=== PATIENT | male | born 1995 | race Caucasian/White ===

== ENCOUNTER 2020-10-18 14:52 | Emergency (ER) | payer MEDICAID, SELFPAY ==
--- NOTE | 2020-10-18 16:02 | XR_ITS ---
EXAMINATION: XR LUMBOSACRAL SPINE CLINICAL INFORMATION: Pain COMPARISON: None TECHNIQUE: Three views of the lumbosacral spine. FINDINGS: Bone alignment is normal. No fracture or dislocation is seen. Disc spaces are normal. XR/XR lumbar spine 2-3V IMPRESSION: Unremarkable examination.
[2020-10-18 16:16] VITALS: BP 113/80; PULSE 114; RESP 16; TEMP 36.4; O2SAT 97; BMI 20.9
--- NOTE | 2020-10-18 17:10 | ED.BACK ---
HPI - Back Pain/Injury General Chief Complaint: Back Pain/Injury Stated Complaint: back pain,no inj Time Seen by Provider: 10/18/20 16:02 Source: patient Mode of arrival: ambulatory Limitations: no limitations History of Present Illness HPI Narrative: States several days ago was trying to get out of bed feeling a pull sensation in the left lower back region and has had back pain with certain position sense. Denies any abdominal pain, nausea, vomiting or diarrhea. No symptoms. No headache, fever or chills. No history of IVDA use. No lower extremity weakness, numbness or control of BB. MD elicited complaint: back pain Similar Symptoms Previously: Yes Location: lumbar spine Relieving factors: immobilization Context: turning/twisting Associated symptoms: denies other symptoms Work related injury: No Related Data Previous Rx's Medication Instructions Recorded cyclobenzaprine 10 mg PO BID PRN #20 tab 10/18/20 ibuprofen 800 mg PO Q8H PRN #20 tab 10/18/20 Allergies Allergy/AdvReac Type Severity Reaction Status Date / Time promethazine [PROMETHAZINE] Allergy Unknown AGITATION Unverified 07/13/20 16:10 Sulfa (Sulfonamide Allergy Unknown BLISTERS Unverified 07/13/20 16:10 Antibiotics) [SULFA (SULFONAMIDE ANTIBIOTICS)] Review of Systems Review of Systems: Constitutional: No Weight loss, No Fever, No Chills, No Night Sweats, No Fatigue, No Malaise ENT/Mouth: No Hearing loss, No Ear Pain, No Nasal Congestion, No Sinus Pain, No Hoarseness, No sore throat, No Rhinorrhea, No Swallowing Difficulty Eyes: No Eye Pain, No Swelling, No Redness, No Foreign Body, No Discharge, No Vision Changes Cardiovascular: No Chest Pain, No SOB, No Dyspnea on Exertion, No Orthopnea, No Edema, No Palpitations Respiratory: No Cough, No Sputum, No Wheezing, No Smoke Exposure, No Dyspnea Gastrointestinal: No Nausea, No Vomiting, No Diarrhea, No Constipation, No abdominal Pain Genitourinary: no irregular bleeding, No Dysuria, No Urinary Frequency, No Hematuria, No Urinary Incontinence, No Urgency Musculoskeletal: No joint pain, No Myalgias, No Joint Swelling, as noted in HPI Skin: No Skin Lesions, No rash Neuro: No Weakness, No Numbness, No Paresthesias, No Loss of Consciousness, No Dizziness, No Headache Psych: No Social Issues Heme/Lymph: No Bruising, No Bleeding,No Lymphadenopathy Endocrine: No Polyuria, No Polydipsia, No Temperature Intolerance Yes all other systems are reviewed and are negative [facility] Past Medical History Medical History FH: bone marrow transplant Hx of radiation therapy Medulloblastoma Personal history of chemotherapy Surgical History H/O eye surgery Social History Social History Alcohol intake: never Smoked in Last 30 Days: No Use of substances other than those prescribed or required for medical reasons: No Advance Directives: No Advance Directives Information Provided: No Physical Exam Vital Signs: Vital Signs: Last Vital Signs Temp 97.5 F 10/18/20 16:16 Pulse 114 H 10/18/20 16:16 Resp 16 10/18/20 16:16 BP 113/80 10/18/20 16:16 Pulse Ox 97 10/18/20 16:16 Body Mass Index 20.9 Reviewed Const: General: cooperative and healthy appearing; No acute distress or intoxicated appearing Nutritional Appearance: average body habitus Orientation/consciousness: patient oriented x3 HENMT: Head: Yes normal to inspection Ears: hearing grossly normal bilaterally Eyes: General: appearance normal, both eyes and all related structures Visual Nuñez: normal visual nuñez by confrontation Neck: Neck: Yes normal visual inspection, No positive Brudzinski's sign, No positive Kernig's sign and No tender Thyroid: Thyroid normal Chest: Chest palpation & inspection: normal inspection of the chest Resp: Effort & Inspection: normal respiratory effort Cardio: Jugular venous distension: no JVD GI: Inspection: Yes normal to inspection Palpation (GI): Soft to palpation Percussion: Yes normal to percussion Auscultation: normal bowel sounds : General: Yes no CVA tenderness Back/Spine/Pelvis: Other: Reproducible soft tissue ttp of the lower lumbar paraspinal muscle region. No midline to palpation. No step-off. 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 Overall nontoxic appearing. Hemodynamically stable. X-ray without acute findings. Will discharge with clear precaution given history return and follow-up instructions. Verbalized understanding. Will do a follow-up closely with PCP to make sure symptoms resolve. Differential Diagnosis Differential diagnosis: Likely strain of lumbar region; Unlikely lumbar radiculopathy, sciatica, renal colic, pyelonephritis, thoracic back pain, AAA and discitis Medical Records Attestation: I reviewed the patient's medical records. Lab Data Attestation: I reviewed the patient's lab results. Imaging Data Lumbar spine x-ray: Radiologist's impression: [address] [address] XRay Report Signed Patient: Bernice Hernández#: [id number] : 1995Acct:[id number] Age/Sex: 25 / MADM Date: 10/18/20 Loc: .ED Attending Dr: Ordering Physician: Lucian Colon NP Date of Service: 10/18/20 Procedure(s): XR lumbar spine 2-3V Accession Number(s): [id number] cc: Lucian Colon APPLIED ANTHROPOLOGIST~ EXAMINATION: XR LUMBOSACRAL SPINE CLINICAL INFORMATION: Pain COMPARISON: None TECHNIQUE: Three views of the lumbosacral spine. FINDINGS: Bone alignment is normal. No fracture or dislocation is seen. Disc spaces are normal. XR/XR lumbar spine 2-3V IMPRESSION: Unremarkable examination. Dictated By:ARMAND ERAZO MD Signed By:<Electronically signed by ARMAND ERAZO MD in OV>10/18/20 1702 DD/ 1602 TD/TT: Sales Representative Public Utilities: [employer] Discharge Plan Discharge Clinical Impression: Strain of lumbar region Patient Disposition: Home, Self-Care Instructions: Low Back Strain (ED) Additional Instructions: Warm compresses Gentle stretching Muscle relaxant as prescribed Topical patch as prescribed Return if any concerns or worsening symptoms Otherwise follow up with her primary care doctor in 1-2 weeks as discussed Thank you Prescriptions: New cyclobenzaprine 10 mg tablet 10 mg PO BID PRN (Reason: muscle spasm) Qty: 20 RF: 0 ibuprofen 800 mg tablet 800 mg PO Q8H PRN (Reason: pain) Qty: 20 RF: 0 Referrals: Physician,None [Primary Care Provider] - 1 week Interventions: ED Discharge Assessment Last Done: 10/18/20 17:21 Discharge Date/Time: 10/18/20 17:23
== END 2020-10-18 17:23 | disposition home or self-care (01) ==
PROVIDERS: Emergency Provider Emergency Medicine
DX: S39.012A Strain of muscle, fascia and tendon of lower back, initial encounter (principal); X50.1XXA Overexertion from prolonged static or awkward postures, initial encounter; Y93.84 Activity, sleeping; Y92.013 Bedroom of single-family (private) house as the place of occurrence of the external cause; Y99.9 Unspecified external cause status
CPT/HCPCS: 72100; 99283; 99284